=== PATIENT | female | born 1995 | race African-American/Black ===

== ENCOUNTER 2025-03-01 17:38 | Emergency (ER) | payer OTHER ==
[~2025-03-01] VITALS: Ht 154.9 cm; Wt 81.8 kg
[2025-03-01] MEDS: KETOROLAC 30 MG/ML 1 ML VIAL IV ONE (21:48)
[2025-03-01 22:00] LABS: BASO # 0.1 10^3/uL (0.0-0.2); BASO % 0.6 % (0.0-1.0); EOS # 0.8 10^3/uL (0.0-0.5); EOS % 5.8 % (0.0-3.0); LYMPH # 4.9 10^3/uL (1.5-5.0); LYMPH % 34.4 % (24.0-44.0); MONO # 0.9 10^3/uL (0.0-0.8); MONO % 6.3 % (2.0-8.0); NEUTROPHILS # 7.5 10^3/uL (1.5-8.5); NEUTROPHILS % 52.5 % (36.0-66.0); PLATELET COUNT, AUTOMATED 350 10^3/uL (150-450)
[2025-03-01] MEDS ORDERED: ISOVUE-370 76% 100 ML VIAL As Ordered ONE (22:22)
[2025-03-01 22:35] LABS: C REACTIVE PROTEIN QUANTITATIV 0.67 MG/DL (<1.0); CALCIUM LEVEL 9.0 MG/DL (8.5-10.1); CARBON DIOXIDE LEVEL 28 MMOL/L (20-31); CHLORIDE LEVEL 105 MMOL/L (98-107); CREATININE FOR GFR 0.68 MG/DL (0.55-1.30); GLOMERULAR FILTRATION RATE > 90.0 (>60); POTASSIUM SERUM 4.6 MMOL/L (3.5-5.1); SODIUM LEVEL 141 MMOL/L (136-145)
[2025-03-01 22:37] LABS: HCG, SERUM QUALITATIVE NEGATIVE (NEGATIVE)
[2025-03-02 01:20] VITALS: BP 119/77; TEMP 97.8; O2SAT 98
[2025-03-02] MEDS ORDERED: AMOX875T2 PO (01:22)
[2025-03-02] MEDS ORDERED: KETO-204 PO (01:22)
[2025-03-02] MEDS ORDERED: PRED20TA PO (01:22)
== END 2025-03-02 01:25 | disposition home or self-care (01) ==
LOC: M ED 17:38
DX: H92.01 Otalgia, right ear (principal); M54.2 Cervicalgia; Z88.6 Allergy status to analgesic agent; F17.200 Nicotine dependence, unspecified, uncomplicated
CPT/HCPCS: 70487; 80048; 83605; 84145; 84703; 85025; 85652; 86140; 96374; 99284; J1885; Q9967